=== PATIENT | female | born 1995 | race Caucasian/White ===

== ENCOUNTER 2017-05-21 21:07 | Emergency (ER) | payer MEDICAID ==
[~2017-05-21] VITALS: Ht 165.1 cm; Wt 70.0 kg
[2017-05-21 21:25] VITALS: BP 119/78
--- NOTE | 2017-05-21 21:29 | NUR ---
URINE COLLECTED AND PT RETURNED TO LOBBY
--- NOTE | 2017-05-21 22:30 | NUR ---
PT TAKEN TO CHAIR D
--- NOTE | 2017-05-21 23:00 | NUR ---
21Y/F PT. PRESENTS TO ED WITH C/O LOWER ABDOMINAL PAIN X 3 DAYS. PT.A1. PT. STATES ABODMINAL PAIN WITH DIARRHEA, NO FEVER. AAO X4, AMBULATORY WITH STEDAY GAIT. ABDOMEN SOFT, NON TENDER, ACTIVE BS X4. C/O PAIN 6/10. VSS, ER MADE AWRE OF PT. STATUS.
[2017-05-22 00:17] LABS: BASOPHILS # (AUTO) 0.4 K/uL (0.00-0.22); BASOPHILS % (AUTO) 3.8 % (0.0-2.0); EOSINOPHILS # (AUTO) 0.2 K/uL (0-0.4); EOSINOPHILS % (AUTO) 1.9 % (0.0-4.0); HEMOGLOBIN 11.1 g/dL (12.0-16.0); LYMPHOCYTES # (AUTO) 2.2 K/uL (2.5-16.5); LYMPHOCYTES % (AUTO) 21.9 % (20.5-51.1); MEAN CORPUSCULAR HEMOGLOBIN 26 pg (27-31); MEAN CORPUSCULAR HGB CONC 33 g/dL (33-37); MEAN CORPUSCULAR VOLUME 79 fL (80-94); MONOCYTES # (AUTO) 0.7 K/uL (0.8-1.0); MONOCYTES % (AUTO) 6.6 % (1.7-9.3); NEUTROPHILS # (AUTO) 6.7 K/uL (1.8-7.7); NEUTROPHILS % (AUTO) 65.8 % (42.2-75.2); PLATELET COUNT (AUTO) 323 K/uL (140-450); RED BLOOD CELL COUNT(AUTO) 4.31 MIL/uL (4.20-5.40); RED CELL DISTRIBUTION WIDTH 13.8 % (11.6-13.7); WHITE BLOOD COUNT (AUTO) 10.2 K/uL (4.8-10.8)
[2017-05-22 00:22] LABS: APPEARANCE,URINE CLEAR (CLEAR); BILIRUBIN,URINE NEGATIVE (NEGATIVE); BLOOD, URINE NEGATIVE (NEGATIVE); COLOR,URINE YELLOW (YELLOW); LEUKOCYTE ESTERASE ,URINE NEGATIVE (NEGATIVE); NITRITE, URINE NEGATIVE (NEGATIVE); UGLUCOSE NEGATIVE (NEGATIVE)
[2017-05-22 00:24] LABS: CREATININE 0.6 mg/dL (0.6-1.3)
[2017-05-22 00:31] LABS: ALBUMIN 3.7 g/dL (3.4-5.0); TOTAL BILIRUBIN 0.2 mg/dL (0.0-1.0)
--- NOTE | 2017-05-22 01:01 | NUR ---
PT MOVED TO BED 4
--- NOTE | 2017-05-22 02:10 | NUR ---
PT TAKEN TO ULTRASOUND
--- NOTE | 2017-05-22 02:37 | NUR ---
PT RETURN FROM ULTRASOUND
--- NOTE | 2017-05-22 04:25 | NUR ---
Patient appears to be resting comfortably in bed. Vital Signs within normal limits. Respirations even and unlabored.
--- NOTE | 2017-05-22 04:40 | NUR ---
Patient discharged with v/s stable. Written and verbal after care instructions given and explained. Patient verbalized understanding. Ambulatory with steady gait. All questions addressed prior to discharge. Advised to follow up with PMD.
[2017-05-22 04:43] VITALS: BP 141/75
== END 2017-05-22 04:40 | disposition home or self-care (01) ==
LOC: MED 21:07
DX: O26.891 Other specified pregnancy related conditions, first trimester (principal); R10.30 Lower abdominal pain, unspecified
CPT/HCPCS: 36415; 76801; 80053; 81003; 81025; 84702; 85025; 99285